=== PATIENT | male | born 1950 | race Caucasian/White ===

== ENCOUNTER 2020-02-08 23:46 | Inpatient (IN) | payer MEDICARE, SELFPAY ==
--- NOTE | 2020-02-08 23:48 | ED_ITS ---
HPI - Abdominal Pain General Chief Complaint: Abdominal Pain Stated Complaint: stomach pain Time Seen by Provider: 02/08/20 23:48 Source: patient Mode of arrival: Ambulatory Limitations: no limitations History of Present Illness HPI narrative: 69-year-old male nonsmoker, nondrinker with a history of prior cholecystectomy and hernia repair presents with 5 hours of persistent, severe upper abdominal pain with nausea and vomiting. He states is worse when he moves and improves with rest. He has little appetite states vomiting does not affect his symptoms. He is not dizzy nor weak or lightheaded. Denies chest pain or shortness of breath. He denies any change in bowel habits such as constipation or diarrhea. He is still passing gas. He denies any dysuria, frequency or urgency. He states his pain feels like it goes through to his back Related Data Allergies Allergy/AdvReac Type Severity Reaction Status Date / Time Penicillins Allergy Verified 02/09/20 00:36 Review of Systems Constitutional Constitutional: Denies chills, Denies fatigue, Denies fever(s), Denies frequent falls, Denies lethargy and Denies weakness Eyes Eyes: Denies change in vision, Denies eye discharge, Denies irritation and Denies loss of vision ENT Ears, Nose, Mouth, and Throat: Denies change in voice, Denies dizziness, Denies neck pain, Denies sore throat and Denies throat swelling Cardiovascular Cardiovascular: Denies chest pain, Denies irregular heart rhythm, Denies lightheadedness, Denies palpitations, Denies dyspnea, Denies dyspnea on exertion and Denies orthopnea Respiratory Respiratory: Denies cough, Denies dyspnea, Denies dyspnea on exertion and Denies wheezing Gastrointestinal Gastrointestinal: Reports abdominal pain, Denies change in bowel habits, Denies diarrhea, Reports nausea and Reports vomiting Musculoskeletal Musculoskeletal: Denies neck pain and Denies numbness Integumentary/Breasts Skin/Breast: Denies pruritus, Denies erythema, Denies rash and Denies wounds Neurologic Neurologic: Denies behavioral changes, Denies confusion, Denies dizziness, Denies frequent falls, Denies loss of vision, Denies numbness and Denies weakness Psychiatric Psychiatric: Denies anxiety, Denies behavioral changes, Denies confusion, Denies depression, Denies homicidal ideation and Denies suicidal ideation Endocrine Endocrine: Denies fatigue, Denies flushing and Denies palpitations Hematologic/Lymphatic Hematologic/Lymphatic: Denies easy bruising Allergic/Immunologic Allergic/Immunologic: Denies urticaria, Denies throat swelling and Denies wheezing Patient History Social History Smoking Status: Never smoker Smoking Status: Never smoker alcohol intake frequency: 0-2 drinks per day Substance Use Type: does not use Exam Narrative Exam Narrative: GENERAL: [69] year old patient appears stated age. Well- nourished, well-developed patient, obviously uncomfortable HEAD: Atraumatic. Normocephalic. EYES: Pupils equal round and reactive. Extraocular motions intact. No scleral icterus. No injection or drainage. ENT: Nose without bleeding, purulent drainage. Throat without erythema, tonsillar hypertrophy or exudate. Airway patent. NECK: Trachea midline. Non tender CARDIOVASCULAR: Regular rate and rhythm without murmurs, gallops, or rubs. RESPIRATORY: Clear to auscultation. Breath sounds equal bilaterally. No wheezes, rales, or rhonchi. GASTROINTESTINAL: Abdomen soft, significantly tender in the epigastrium and periumbilical region, nondistended. Normal bowel sounds in all 4 quadrants EXTREMITIES: No edema or joint tenderness. BACK: Nontender without deformity or crepitance. No flank tenderness. NEURO: AOx3. SKIN: No rash or erythema of visible areas Initial Vital Signs Initial Vital Signs: Vital Signs Pulse Rate 72 02/08/20 23:51 Pulse Oximetry 99 02/08/20 23:51 Course Orders Ordered: ED Orders 02/08/20 23:53 XR acute abdomen series Stat 02/08/20 23:59 Complete Blood Count AUTO DIFF Stat Comprehensive Metabolic Panel Stat Lactate (Lactic Acid) Stat Lipase Stat 02/09/20 EKG-12 Lead Stat 02/09/20 00:55 CT abdomen pelvis w con Stat COVID19 -ED/INPAT/OR/L&D Stat Ondansetron HCl (Zofran) 4 mg IV Q4HR PRN PRN Reason: Nausea And Vomiting Last Admin: 02/09/20 00:11 Dose: 4 mg Documented by: GUADALUPE Discontinued Medications Hydromorphone HCl (Dilaudid) 0.5 mg IV NOW ONE Stop: 02/08/20 23:54 Last Admin: 02/09/20 00:11 Dose: 0.5 mg Documented by: GUADALUPE Sodium Chloride (Normal Saline 0.9%) 1,000 mls @ 1,000 mls/hr IV BOLUS ONE Stop: 02/09/20 00:52 Last Infusion: 02/09/20 01:43 Dose: 0 mls/hr Documented by: Admin: 02/09/20 00:11 Dose: 1,000 mls/hr Documented by: GUADALUPE Pantoprazole Sodium (Protonix) 40 mg IV NOW ONE Stop: 02/08/20 23:54 Last Admin: 02/09/20 00:12 Dose: 40 mg Documented by: GUADALUPE Vital Signs Vital signs: Vital Signs - 8 hr 02/08/20 23:51 02/08/20 23:52 02/09/20 00:00 Temperature 98.0 F Pulse Rate 72 70 70 Respiratory Rate 22 Blood Pressure 206/93 H Pulse Oximetry 99 97 99 02/09/20 00:37 02/09/20 00:39 02/09/20 01:00 Temperature Pulse Rate 81 75 76 Respiratory Rate Blood Pressure 177/80 H 148/70 H Pulse Oximetry 99 98 98 02/09/20 01:30 Temperature Pulse Rate 75 Respiratory Rate Blood Pressure 167/74 H Pulse Oximetry 98 MDM - Abdominal Pain Lab Data Result diagrams: 02/08/20 23:59 02/08/20 23:59 Labs: Lab Results 02/08/20 02/08/20 02/08/20 Range/Units 23:59 23:59 23:59 WBC 13.9 H (4.5-11.0) X10^3/uL RBC 5.45 (4.5-5.9) X10^6/uL Hgb 16.8 (13.5-17.5) g/dL Hct 48.0 (41-53) % MCV 88.1 (80-100) fL MCH 30.9 (26-34) PG MCHC 35.1 (30-36) % RDW 13.3 (11.6-14.8) % Plt Count 222 (150-400) X10^3/uL Neut % (Auto) 91.4 H (50-75) % Lymph % (Auto) 6.0 L (25-40) % Hardy % (Auto) 2.2 L (3-14) % Eos % (Auto) 0.1 L (2-4) % Baso % (Auto) 0.3 (0-2) % Neut # (Auto) 65873 H (2738-1046) /uL Lymph # (Auto) 800 L (2442-6653) /uL [place] # (Auto) 300 (0-900) /uL Eos # (Auto) 0 (0-450) /uL Baso # (Auto) 0 (0-100) /uL Sodium 136 L (137-145) mmol/L Potassium 4.0 (3.4-5.1) mmol/L Chloride 102 (98-107) mmol/L Carbon Dioxide 22 (22-32) mmol/L BUN 18 (9-20) mg/dL Creatinine 0.94 (0.66-1.25) mg/dL Estimated GFR > 60.0 (>60) mL/min BUN/Creatinine Ratio 19.1 (6-22) Glucose 164 H (80-110) mg/dL Lactate 2.4 H (0.7-2.1) mmol/L Calcium 9.9 (8.4-10.2) mg/dL Total Bilirubin 1.5 H (0.2-1.3) mg/dL AST 30 (17-59) IU/L ALT 30 (<50) IU/L Alkaline Phosphatase 72 (38-126) U/L Total Protein 7.8 (6.3-8.2) g/dL Albumin 4.5 (3.5-5.0) g/dL Globulin 3.3 (1.7-4.1) g/dL Albumin/Globulin Ratio 1.4 (1.0-2.8) Lipase 19615 H (23-300) U/L COVID-19 PCR (Negative) 02/09/20 Range/Units 00:55 WBC (4.5-11.0) X10^3/uL RBC (4.5-5.9) X10^6/uL Hgb (13.5-17.5) g/dL Hct (41-53) % MCV (80-100) fL MCH (26-34) PG MCHC (30-36) % RDW (11.6-14.8) % Plt Count (150-400) X10^3/uL Neut % (Auto) (50-75) % Lymph % (Auto) (25-40) % [place] % (Auto) (3-14) % Eos % (Auto) (2-4) % Baso % (Auto) (0-2) % Neut # (Auto) (7148-5238) /uL Lymph # (Auto) (7600-6394) /uL Hardy # (Auto) (0-900) /uL Eos # (Auto) (0-450) /uL Baso # (Auto) (0-100) /uL Sodium (137-145) mmol/L Potassium (3.4-5.1) mmol/L Chloride (98-107) mmol/L Carbon Dioxide (22-32) mmol/L BUN (9-20) mg/dL Creatinine (0.66-1.25) mg/dL Estimated GFR (>60) mL/min BUN/Creatinine Ratio (6-22) Glucose (80-110) mg/dL Lactate (0.7-2.1) mmol/L Calcium (8.4-10.2) mg/dL Total Bilirubin (0.2-1.3) mg/dL AST (17-59) IU/L ALT (<50) IU/L Alkaline Phosphatase (38-126) U/L Total Protein (6.3-8.2) g/dL Albumin (3.5-5.0) g/dL Globulin (1.7-4.1) g/dL Albumin/Globulin Ratio (1.0-2.8) Lipase (23-300) U/L COVID-19 PCR Negative (Negative) Imaging Data CT scan - abdomen/pelvis: Radiologist's Impression: acute pancreatitis, no abscess ECG Data Attestation: I personally reviewed and interpreted this ECG as follows: Prior ECG tracings: not available for review Interpretation: Normal sinus rhythm with rate of 63. Slightly long as needed o nannette at 2:08 a.m.. No obvious ectopy, ST-elevation or T-wave abnormalities MDM Narrative Medical decision making narrative: Patient with severe epigastric pain. He has surgically absent gallbladder and does not drink, CT ordered and shows no abscess or necrosis. Patient does take Metformin which could be a precipitant. Patient requires admission for IV hydration and pain control Discharge Plan Departure Patient Disposition: Admitted As Inpatient Clinical Impression: Acute pancreatitis Admit Date/Time: 02/09/20 01:30 Admit Provider: Lindsey Peters
[2020-02-08 23:51] VITALS: PULSE 72; O2SAT 99
[2020-02-08 23:52] VITALS: BP 206/93; PULSE 70; RESP 22; TEMP 36.7; O2SAT 97
--- NOTE | 2020-02-08 23:53 | DI.RAD.S_ITS ---
PROCEDURE: XR ACUTE ABDOMEN SERIES INDICATIONS: Abdominal pain with nausea and vomiting TECHNIQUE: One view chest and two views of the abdomen were acquired. COMPARISON: [facility], CT, CT ABDOMEN PELVIS W CON, 02/09/2020, 1:02. FINDINGS: Surgical changes and devices: Cholecystectomy clips are seen. Chest: Lungs are clear. Heart size is normal. No pleural effusions. No pneumoperitoneum. Abdomen: Bowel gas pattern is normal. No suspicious calcifications. Visualized solid organ contours appear normal. Bones: No suspicious bony lesions. Age-appropriate bony degenerative changes are seen. Mild dextroconvex scoliotic curvature is seen. IMPRESSION: No acute abnormality is seen. Postoperative and degenerative changes are seen. Dictated by: Jerel West M.D. on 02/09/2020 at 8:19 Approved by: Jerel West M.D. on 02/09/2020 at 8:20
[2020-02-09] VITALS (14 sets, daily range): BP systolic 136–177; BP diastolic 70–103; PULSE 55–82; RESP 17–18; TEMP 36.3–37.6; O2SAT 96–99; BMI 29.6
[2020-02-09 00:10] LABS: Add Manual Diff / Slide Review NO; Basophils Absolute Auto 0 /uL (0-100); Basophils Percent Auto 0.3 % (0-2); Eosinophils Absolute Auto 0 /uL (0-450); Eosinophils Percent Auto 0.1 % (2-4); Hemoglobin 16.8 g/dL (13.5-17.5); Lymphocytes Absolute Auto 800 /uL (1100-4500); Mean Corpuscular HGB Conc 35.1 % (30-36); Mean Corpuscular Hemoglobin 30.9 PG (26-34); Mean Corpuscular Volume 88.1 fL (80-100); Monocytes Absolute Auto 300 /uL (0-900); Monocytes Percent Auto 2.2 % (3-14); Neutrophils Absolute Auto 12700 /uL (1500-7000); Neutrophils Percent Auto 91.4 % (50-75); Platelet Count 222 X10^3/uL (150-400); Red Blood Cell Count 5.45 X10^6/uL (4.5-5.9); Red Cell Distribution Width 13.3 % (11.6-14.8); White Blood Cell Count 13.9 X10^3/uL (4.5-11.0)
[2020-02-09] MEDS: HYDROMORPHONE 0.5 MG INJ IV ×3 (00:11→11:17)
[2020-02-09] MEDS: SODIUM CHLORIDE 0.9% 1,000 ML 1000 ML IV (00:11)
[2020-02-09] MEDS: ONDANSETRON 4 MG/2 ML INJ IV (00:11)
[2020-02-09] MEDS: PANTOPRAZOLE 40 MG VIAL IV (00:12)
[2020-02-09 00:24] LABS: Alanine Aminotransferase 30 IU/L (<50); Albumin 4.5 g/dL (3.5-5.0); Albumin Globulin Ratio 1.4 (1.0-2.8); Alkaline Phosphatase 72 U/L (38-126); Aspartate Aminotransferase 30 IU/L (17-59); BUN Creatinine Ratio 19.1 (6-22); Bilirubin Total 1.5 mg/dL (0.2-1.3); Blood Urea Nitrogen 18 mg/dL (9-20); Calcium 9.9 mg/dL (8.4-10.2); Carbon Dioxide 22 mmol/L (22-32); Chloride 102 mmol/L (98-107); Estimated Glomerular Filt Rate > 60.0 mL/min (>60); Globulin 3.3 g/dL (1.7-4.1); Glucose 164 mg/dL (80-110); Lactate (Lactic Acid) 2.4 mmol/L (0.7-2.1); Sodium 136 mmol/L (137-145); Total Protein 7.8 g/dL (6.3-8.2)
[2020-02-09 00:44] LABS: HEMOLYSIS 24 (0-50)
[2020-02-09 00:46] LABS: Lipase 17395 U/L (23-300)
--- NOTE | 2020-02-09 00:55 | DI.CT.S_ITS ---
PROCEDURE: CT ABDOMEN PELVIS W CON INDICATIONS: severe epigastric pain, pancreatitis TECHNIQUE: After the administration of intravenous contrast, 5 mm thick sections acquired from the diaphragm to the symphysis. 5 mm coronal and sagittal reformats were acquired. For radiation dose reduction, the following was used: automated exposure control, adjustment of mA and/or kV according to patient size. COMPARISON: [facility], CR, XR ACUTE ABDOMEN SERIES, 02/09/2020, 0:12. FINDINGS: Image quality: Excellent. ABDOMEN: Lung bases: Lung bases are clear. Heart size is normal. Solid organs: Liver is normal in size. Within the inferior right liver, there is a subcentimeter hypodense lesion seen, as on series 2, image 26, which is nonspecific and may represent a cyst or hemangioma. Calcified granulomas can be seen within the liver. Incidental note is made of focal fatty infiltration adjacent to the falciform ligament, which is not regarded to be pathologic. Gallbladder has been removed. Biliary system is non dilated. Inflammatory changes can be seen adjacent to the pancreas scar particularly adjacent to the head of the pancreas. Pancreas enhances normally, without necrotic areas. The pancreatic duct does not appear dilated. No loculated fluid collections are seen to suggest pancreatic pseudocyst Spleen is normal in size and enhancement. No adrenal nodules. Kidneys demonstrate normal size and enhancement, without hydronephrosis. There is an 8.5 cm simple appearing, water density cyst exophytic along the lateral aspect of the left kidney. Smaller presumed simple cysts are seen elsewhere within the kidneys. At the inferior pole of the left kidney, there is a nonobstructing 6 mm stone seen, as on series 4, image 37. Additional are smaller nonobstructing left-sided kidney stones are also seen. Peritoneum and bowel: Focal wall thickening can be seen involving the duodenum, particularly adjacent to the pancreas. Potential gastric wall thickening is seen, yet this may simply be secondary to nondistention. No dilated loops of small bowel are seen. No free air or significant free fluid can be seen. No significant colonic abnormality is seen. A normal appendix is incidentally noted. Nodes and vessels: No retroperitoneal or mesenteric adenopathy by size criteria. Aorta and inferior vena cava are normal in size. Miscellaneous: No ventral hernias. PELVIS: Genitourinary: Bladder wall thickness is normal. Miscellaneous: No inguinal adenopathy. Bilateral fat containing inguinal hernias are seen. Bones: No suspicious bony lesions. No vertebral body compression fractures. Mild dextroconvex scoliotic curvature is seen. Age-appropriate bony degenerative changes are seen. Bilateral L5 pars defects are seen, with mild grade 1 anterolisthesis at L5-S1. Degenerative changes are seen throughout, which are most prominent involving the lower lumbar spine. At least moderate degenerative changes seen of the right hip. IMPRESSION: Pancreatitis, without findings of pancreatic necrosis or pseudocyst formation. Associated wall thickening can be seen of the adjacent duodenum. Potential gastric wall thickening is also seen. Incidental note is made of: Cholecystectomy Subcentimeter likely liver cyst or hemangioma Prior granulomatous exposure. Prominent left renal cyst Nonobstructing left-sided kidney stones Bilateral fat containing inguinal hernias Mild dextroconvex scoliotic curvature L5 bilateral pars defects, with grade 1 anterolisthesis at L5-S1 Focal lower lumbar spine degenerative change At least moderate right hip degenerative change Note: No significant discrepancy from the preliminary report. Dictated by: Jerel West M.D. on 02/09/2020 at 7:35 Approved by: Jerel West M.D. on 02/09/2020 at 7:43
[2020-02-09 01:26] LABS: COVID19 -Nasal RAPID Negative (Negative)
[2020-02-09 02:06] LABS: Reflexed Lactate in 2 Hours Y
[2020-02-09 02:35] LABS: Lactate 2HR (Lactic Acid Rflx) 1.9 mmol/L (0.7-2.1)
[2020-02-09] MEDS: SODIUM CHLORIDE 0.9% 1,000 ML 100 ML IV ×2 (03:36→14:33)
[2020-02-09 03:39] LABS: Hemoglobin A1C% w Est Avg Glu 5.7 % (4.0-6.0)
[2020-02-09] MEDS: KETOROLAC 15 MG/ML VIAL IV ×2 (03:40→10:32)
--- NOTE | 2020-02-09 04:50 | PM.HP.1 ---
History of Present Illness History of Present Illness Date Patient Seen: 02/09/20 Time Patient Seen: 02:00 Chief complaint: stomach pain Narrative: Michael Acuña is an [facility] resident visiting his girlfriend who lives locally with a history of cholecystecomy, diet controlled diabetes and an enlarged prostate, was in his usual state of health when he developed central abdominal pain and nausea at around 6 pm. It worsened and he took some Pepto bismal around 2129, stated it helped for about 10 minutes, then decided to walk to the hospital to get checked out. He denies fever, sweats or chills, an alcohol consumption history, shortness of breath, chest pain, vomiting, does have chronic urinary retention, denies diarrhea, constipation, or upper extremity neuropathy or ataxia, but endorses haveing mild foot numbness which he states has been improving. Patient has been on a Keto diet and states it has helped him loose weight (50 lbs) and get his blood glucose under better control. States his last A1c was 5.7, and this was verified today. He takes a number of organic enzymes and bile which he states helps for his lack of a gall bladder. Patient had a CT done that indicated mild acute on chronic pancreatitis with a question of gastroenteritis. Patient is afebrile, blood pressure 152/103, heart rate 82 respiratory rate 18, oxygen saturation 97% on room air, he weighs 99 kg with a BMI of 29.6. WBC is mildly elevated at 13.9, RBC 5.45, hemoglobin 16.8, hematocrit 48, platelet count 222, is a neutrophil count of 12,700, sodium 136, potassium 4.0, chloride 102, bicarb 22, BUN 18, creatinine 0.94, GFR is greater than 60, glucose was 164, hemoglobin A1c 5.7, lactate is 1.9, bilirubin is 1.5, AST 30, ALT 30, alk-phos 72, lipase is 17,395, COVID-19 is negative. Patient History Surgical History (Updated 02/09/20 @ 05:03 by LAURE Hoffman) History of cholecystectomy (Acute) Family & Social History Social History: household members none Prior Living Arrangements Mobile home Safety & Behavioral: Feels Safe in Current Yes Environment Been Physically Hurt or No Threatened By a Person Suicidal Ideation Description None Suicide Plan Description No Plan Tobacco & Substance use: Smoking Status Never smoker alcohol intake current alcohol intake frequency denies Substance Use Type does not use Meds Home Medications and Allergies Home Medications Medication Instructions Recorded Confirmed Type metformin [Glucophage] 500 mg PO BID 02/09/20 02/09/20 History tamsulosin [Flomax] 0.8 mg PO BEDTIME 02/09/20 02/09/20 History Allergies Allergy/AdvReac Type Severity Reaction Status Date / Time Penicillins Allergy Verified 02/09/20 00:36 Review of Systems Review of Systems ROS: Yes All systems reviewed with the patient and are negative except as otherwise documented Exam Vital Signs (past 8 hours): - 02/08/20 23:51 02/08/20 23:52 02/09/20 00:00 Temperature 98.0 F Pulse Rate 72 70 70 Respiratory Rate 22 Blood Pressure 206/93 H Pulse Oximetry 99 97 99 02/09/20 00:37 02/09/20 00:39 02/09/20 01:00 Temperature Pulse Rate 81 75 76 Respiratory Rate Blood Pressure 177/80 H 148/70 H Pulse Oximetry 99 98 98 02/09/20 01:30 02/09/20 02:00 02/09/20 02:25 Temperature 97.4 F L Pulse Rate 75 81 82 Respiratory Rate 18 Blood Pressure 167/74 H 174/94 H 152/103 H Pulse Oximetry 98 98 97 Oxygen Delivery Method Room Air Oxygen Flow Rate 0 Narrative Exam Narrative: Gen: Alert, oriented, overweight 69 y.o. male, NAD HEENT: normocephalic, atraumatic, conjunctiva clear, sclera non-icteric, oral mucosa pink and moist Neck: supple, full ROM, no JVD, trachea is midline Resp: Lungs CTA, non-labored breathing CV: RRR, no murmur or rubs Abd: soft, diffuse mid abdominal tenderness, normoactive BTs Skin: no lesions or rashes, dry and intact Neuro: Alert and oriented X 4 w/no focal deficits. Speech clear and coherent. Extremities: moves all 4 extremities, is ambulatory, negative Breann?s sign Psyche: very pleasant, normal mood and affect. Objective Labs Result Diagrams: 02/08/20 23:59 02/08/20 23:59 Labs: Laboratory Results - last 24 hr 02/08/20 02/08/20 02/08/20 23:59 23:59 23:59 WBC 13.9 H RBC 5.45 Hgb 16.8 Hct 48.0 MCV 88.1 MCH 30.9 MCHC 35.1 RDW 13.3 Plt Count 222 Neut % (Auto) 91.4 H Lymph % (Auto) 6.0 L [place] % (Auto) 2.2 L Eos % (Auto) 0.1 L Baso % (Auto) 0.3 Neut # (Auto) 44164 H Lymph # (Auto) 800 L [place] # (Auto) 300 Eos # (Auto) 0 Baso # (Auto) 0 Sodium 136 L Potassium 4.0 Chloride 102 Carbon Dioxide 22 BUN 18 Creatinine 0.94 Estimated GFR > 60.0 BUN/Creatinine Ratio 19.1 Glucose 164 H Hemoglobin A1c Lactate 2.4 H Calcium 9.9 Total Bilirubin 1.5 H AST 30 ALT 30 Alkaline Phosphatase 72 Total Protein 7.8 Albumin 4.5 Globulin 3.3 Albumin/Globulin Ratio 1.4 Lipase 16427 H COVID-19 PCR 02/08/20 02/09/20 02/09/20 23:59 00:55 02:12 WBC RBC Hgb Hct MCV MCH MCHC RDW Plt Count Neut % (Auto) Lymph % (Auto) [place] % (Auto) Eos % (Auto) Baso % (Auto) Neut # (Auto) Lymph # (Auto) [place] # (Auto) Eos # (Auto) Baso # (Auto) Sodium Potassium Chloride Carbon Dioxide BUN Creatinine Estimated GFR BUN/Creatinine Ratio Glucose Hemoglobin A1c 5.7 Lactate 1.9 Calcium Total Bilirubin AST ALT Alkaline Phosphatase Total Protein Albumin Globulin Albumin/Globulin Ratio Lipase COVID-19 PCR Negative Assessment & Plan Assessment & Plan narrative: Michael Acuña will be observed overnight for pain control and fluids for an acute on chronic pancreatitis Acute on chronic pancreatitis with a lipase of 17,395 -NS at 100 ml/hour -lipid panel in the am -pain control with low dose IV hydromorphone, toradal and tylenol -if he is able to tolerate a full liquid diet, he should be ready for discharge -continue to monitor for signs and symptoms of active infection Diet controlled diabetes -A1c of 5.7 -glucose checks achs with low dose correctional insulin Hypertension without a diagnosis of hypertension -Start lisinopril 10 mg po daily VTE prophylaxis: Caprini risk score: 4, moderate. Enoxaparin 40 mg subQ daily Consults: none Patient is observation status as his stay is not likely to exceed 2 midnights. FEN: IV NS at 100 ml/hour, clears, BMP and magnesium in the am. Dispo: probable discharge to home Code Status: as discussed with patient COVID-19 COVID-19 status: Negative Result date/Date tested (Pos, Neg/Pending): 02/09/20 Quality VTE Deep Vein Thrombosis/Pulmonary Embolism Present on Admission: No
[2020-02-09 06:14] LABS: Add Manual Diff / Slide Review NO; Basophils Absolute Auto 100 /uL (0-100); Basophils Percent Auto 0.5 % (0-2); Eosinophils Absolute Auto 0 /uL (0-450); Eosinophils Percent Auto 0.1 % (2-4); Hematocrit 44.2 % (41-53); Hemoglobin 15.2 g/dL (13.5-17.5); Lymphocytes Absolute Auto 1400 /uL (1100-4500); Lymphocytes Percent Auto 11.2 % (25-40); Mean Corpuscular HGB Conc 34.4 % (30-36); Mean Corpuscular Hemoglobin 30.5 PG (26-34); Mean Corpuscular Volume 88.6 fL (80-100); Monocytes Absolute Auto 700 /uL (0-900); Monocytes Percent Auto 5.6 % (3-14); Neutrophils Absolute Auto 10500 /uL (1500-7000); Neutrophils Percent Auto 82.6 % (50-75); Platelet Count 212 X10^3/uL (150-400); Red Blood Cell Count 4.99 X10^6/uL (4.5-5.9); Red Cell Distribution Width 13.3 % (11.6-14.8); White Blood Cell Count 12.6 X10^3/uL (4.5-11.0)
[2020-02-09 06:16] LABS: Blood Urea Nitrogen 17 mg/dL (9-20); Calcium 9.2 mg/dL (8.4-10.2); Carbon Dioxide 28 mmol/L (22-32); Chloride 103 mmol/L (98-107); Cholesterol 143 mg/dL (140-199); Estimated Glomerular Filt Rate > 60.0 mL/min (>60); Glucose 125 mg/dL (80-110); HDL Cholesterol 36 mg/dL (40-60); HEMOLYSIS < 15 (0-50); LDL Cholesterol Calculated 94 mg/dL (<100); Magnesium 1.9 mg/dL (1.6-2.3); Potassium 4.6 mmol/L (3.4-5.1); Sodium 136 mmol/L (137-145); Triglycerides 64 mg/dL (35-150)
[2020-02-09] MEDS: lisinopriL 10 MG TABLET PO (08:23)
[2020-02-09] MEDS: ENOXAPARIN 40 MG/0.4 ML SYRINGE SUBCUT (08:23)
--- NOTE | 2020-02-09 08:35 | PC.NURSE ---
Patient alert,oriented rates mid abdominal pain /, reports the pain has increased slightly after having clear liquids for breakfast. Denies nausea.
[2020-02-09 10:32] LABS: Lipase 8865 U/L (23-300)
--- NOTE | 2020-02-09 10:50 | CM.DANOTE ---
DCP:Case received, EMR reviewed and met with patient, Introduced self and role. Was able to obtain information from patient regarding his baseline activity level prior to surgery, as well as health and living situation. DCP assessment completed with information currently available. Patient is 69 year old male who admitted early this morning to the care of the hospitalist team. PCP: Dr. Moya at [facility]. Payer: confirmed: [employer] Medicare. Patient came to the hospital via private vehicle secondary to abdominal pain. He holds current diagnosis of acute pancreatitis. Patient also has history of diabetes. Met with patient in his room. He is alert and oriented, pleasant. He resides in [place], he used to work at [employer]. He came to [place] to see his significant other, Coleen Main. He is independent. He stated, he no longer drinks, uses Marijuana for recreational use. He is independent at baseline. P: DCP to continue to follow. According to team rounds, may be here for one to two more days. Plan is for home when medically stable. Piper Herman RN/[facility] [place]
--- NOTE | 2020-02-09 17:32 | P.PN_ITS ---
Subjective Subjective Date Patient Seen: 02/09/20 Interval history: Brief progress note: Patient seen and examined. Lipase highly elevated at 17,395 and rechecked this morning and trending downward now 8865. WBC elevated at 13.9 and trending down likely due to inflammation. CT abdomen and pelvis with contrast demonstrated pancreatitis with associated duodenal wall thickening and without evidence of pancreatic necrosis or pseudocyst. No evidence of biliary ductal dilatation and patient is status post cholecystectomy so his residual gallstone causing pancreatitis is unlikely. Triglycerides are normal at 64. Patient does consume keto diet but states it is not high in fat and r ecently cut out dairy. Pancreatitis does not seem to be medication related metformin or tamsulosin, however, the patient reports he does take several [id number] supplements and unknown if could have contributed. Discussed pancreatitis and most common causes and is unclear at this time etiology of this. Patient had abdominal pain after clear liquid diet this morning and retracted to bowel rest with NPO except ice chips and sips. Physical exam unremarkable other than mild epigastric abdominal tenderness to palpation. Continue IV fluid hydration with NS at 100 mL/hr and pain control with IV hydromorphone. Continue to monitor blood glucose every 6 hours while NPO. Exam Vital Signs (past 8 hours): - 02/09/20 11:21 02/09/20 15:10 02/09/20 17:26 Temperature 98.4 F 99.6 F Pulse Rate 67 61 Respiratory Rate 18 18 Blood Pressure 136/73 141/74 H Pulse Oximetry 98 98 96 Oxygen Delivery Method Room Air Oxygen Flow Rate 0 Objective Labs Result Diagrams: 02/09/20 05:38 02/09/20 05:38 Labs: Laboratory Results - last 24 hr 02/08/20 02/08/20 02/08/20 23:59 23:59 23:59 WBC 13.9 H RBC 5.45 Hgb 16.8 Hct 48.0 MCV 88.1 MCH 30.9 MCHC 35.1 RDW 13.3 Plt Count 222 Neut % (Auto) 91.4 H Lymph % (Auto) 6.0 L [place] % (Auto) 2.2 L Eos % (Auto) 0.1 L Baso % (Auto) 0.3 Neut # (Auto) 40471 H Lymph # (Auto) 800 L [place] # (Auto) 300 Eos # (Auto) 0 Baso # (Auto) 0 Sodium 136 L Potassium 4.0 Chloride 102 Carbon Dioxide 22 BUN 18 Creatinine 0.94 Estimated GFR > 60.0 BUN/Creatinine Ratio 19.1 Glucose 164 H Hemoglobin A1c Lactate 2.4 H Calcium 9.9 Magnesium Total Bilirubin 1.5 H AST 30 ALT 30 Alkaline Phosphatase 72 Total Protein 7.8 Albumin 4.5 Globulin 3.3 Albumin/Globulin Ratio 1.4 Triglycerides Cholesterol LDL Cholesterol, Calc HDL Cholesterol Lipase 21603 H COVID-19 PCR 02/08/20 02/09/20 02/09/20 23:59 00:55 02:12 WBC RBC Hgb Hct MCV MCH MCHC RDW Plt Count Neut % (Auto) Lymph % (Auto) [place] % (Auto) Eos % (Auto) Baso % (Auto) Neut # (Auto) Lymph # (Auto) [place] # (Auto) Eos # (Auto) Baso # (Auto) Sodium Potassium Chloride Carbon Dioxide BUN Creatinine Estimated GFR BUN/Creatinine Ratio Glucose Hemoglobin A1c 5.7 Lactate 1.9 Calcium Magnesium Total Bilirubin AST ALT Alkaline Phosphatase Total Protein Albumin Globulin Albumin/Globulin Ratio Triglycerides Cholesterol LDL Cholesterol, Calc HDL Cholesterol Lipase COVID-19 PCR Negative 02/09/20 02/09/20 02/09/20 05:38 05:38 05:38 WBC 12.6 H RBC 4.99 Hgb 15.2 Hct 44.2 MCV 88.6 MCH 30.5 MCHC 34.4 RDW 13.3 Plt Count 212 Neut % (Auto) 82.6 H Lymph % (Auto) 11.2 L [place] % (Auto) 5.6 Eos % (Auto) 0.1 L Baso % (Auto) 0.5 Neut # (Auto) 56395 H Lymph # (Auto) 1400 [place] # (Auto) 700 Eos # (Auto) 0 Baso # (Auto) 100 Sodium 136 L Potassium 4.6 Chloride 103 Carbon Dioxide 28 BUN 17 Creatinine 1.06 Estimated GFR > 60.0 BUN/Creatinine Ratio 16.0 Glucose 125 H Hemoglobin A1c Lactate Calcium 9.2 Magnesium 1.9 Total Bilirubin AST ALT Alkaline Phosphatase Total Protein Albumin Globulin Albumin/Globulin Ratio Triglycerides 64 Cholesterol 143 LDL Cholesterol, Calc 94 HDL Cholesterol 36 L Lipase 8865 H COVID-19 PCR Quality VTE Deep Vein Thrombosis/Pulmonary Embolism Present on Admission: No
[2020-02-10] VITALS (8 sets, daily range): BP systolic 123–160; BP diastolic 61–92; PULSE 52–73; RESP 15–20; TEMP 36.1–36.7; O2SAT 97–99
[2020-02-10] MEDS: SODIUM CHLORIDE 0.9% 1,000 ML 100 ML IV ×3 (00:32→22:06)
[2020-02-10] MEDS: ACETAMINOPHEN 325 MG TABLET 650 MG PO (00:45)
[2020-02-10] MEDS: HYDROMORPHONE 0.5 MG INJ IV (00:51)
[2020-02-10 05:34] LABS: Add Manual Diff / Slide Review NO; Basophils Absolute Auto 100 /uL (0-100); Basophils Percent Auto 0.6 % (0-2); Eosinophils Absolute Auto 200 /uL (0-450); Eosinophils Percent Auto 1.2 % (2-4); Hematocrit 41.6 % (41-53); Hemoglobin 14.5 g/dL (13.5-17.5); Lymphocytes Absolute Auto 1900 /uL (1100-4500); Lymphocytes Percent Auto 14.4 % (25-40); Mean Corpuscular HGB Conc 34.8 % (30-36); Mean Corpuscular Volume 88.9 fL (80-100); Monocytes Absolute Auto 1300 /uL (0-900); Monocytes Percent Auto 10.3 % (3-14); Neutrophils Absolute Auto 9600 /uL (1500-7000); Neutrophils Percent Auto 73.5 % (50-75); Platelet Count 177 X10^3/uL (150-400); Red Blood Cell Count 4.68 X10^6/uL (4.5-5.9); Red Cell Distribution Width 13.2 % (11.6-14.8)
[2020-02-10 05:45] LABS: Alanine Aminotransferase 18 IU/L (<50); Albumin 3.5 g/dL (3.5-5.0); Albumin Globulin Ratio 1.3 (1.0-2.8); Alkaline Phosphatase 51 U/L (38-126); Aspartate Aminotransferase 18 IU/L (17-59); BUN Creatinine Ratio 12.2 (6-22); Bilirubin Total 1.4 mg/dL (0.2-1.3); Blood Urea Nitrogen 11 mg/dL (9-20); Calcium 8.8 mg/dL (8.4-10.2); Carbon Dioxide 26 mmol/L (22-32); Chloride 106 mmol/L (98-107); Estimated Glomerular Filt Rate > 60.0 mL/min (>60); Globulin 2.8 g/dL (1.7-4.1); Glucose 123 mg/dL (80-110); HEMOLYSIS < 15 (0-50); Lipase 1480 U/L (23-300); Magnesium 1.8 mg/dL (1.6-2.3); Potassium 3.8 mmol/L (3.4-5.1); Sodium 137 mmol/L (137-145); Total Protein 6.3 g/dL (6.3-8.2)
--- NOTE | 2020-02-10 05:57 | PC.NURSE ---
Summary- Patient reported pain /10 at 00:00 and requested pain medication for relief. IV hydromorphone 0.5 mg was given. Patient sleeping comfortably rest of shift.
[2020-02-10 06:04] LABS: Procalcitonin < 0.05 ng/mL (<0.5)
[2020-02-10] MEDS: ENOXAPARIN 40 MG/0.4 ML SYRINGE SUBCUT (10:32)
--- NOTE | 2020-02-10 11:08 | PC.NURSE ---
PATIENT TOLERATED CLEAR LIQUID DIET WITHOUT INCREASED ABD PAIN. STATES PAIN IS 1-2/10. TOOK SHOWER THIS AM. NO S/SX'S OF DISTRESS.
--- NOTE | 2020-02-10 14:06 | P.PN_ITS ---
Subjective Subjective Date Patient Seen: 02/10/20 Time Patient Seen: 14:07 Interval history: Michael Acuña is a 69-year-old male with type 2 diabetes, BPH who was admitted with pancreatitis. He is seen for follow-up today. He has been tolerating clear liquids throughout today without nausea or vomiting. His lipase was repeated and is down quite a bit to 1480 today. He denies any fevers, chills. His abdominal pain is currently rated about a 2 or 3/10 and is tolerable. It is not seemingly worsened with clear liquid intake at the moment. Exam Vital Signs (past 8 hours): - 02/10/20 08:32 02/10/20 08:52 02/10/20 12:36 Temperature 97.6 F 98.1 F Pulse Rate 56 L 68 Respiratory Rate 16 15 Blood Pressure 160/92 H 141/82 H Pulse Oximetry 98 98 98 Oxygen Delivery Method Room Air Oxygen Flow Rate 0 Narrative Exam Narrative: GENERAL APPEARANCE: Well developed, well nourished, in no acute distress. SKIN: Inspection of the skin reveals no rashes, ulcerations or petechiae. HEENT: Normocephalic atraumatic, extraocular muscles are intact, oropharynx is clear and mucous membranes are moist, neck is supple without adenopathy NECK: Supple and symmetric. There was no thyroid enlargement, and no tenderness, or masses were felt. CHEST: Normal AP diameter and normal contour without any kyphoscoliosis. LUNGS: Auscultation of the lungs revealed no wheezes, rhonchi, or rales. CARDIOVASCULAR: There was a regular rate and rhythm without any murmurs, gallops, rubs. Peripheral pulses were 2+ and symmetric. ABDOMEN: Soft and nontender with normal bowel sounds. No ascites was noted. MUSCULOSKELETAL: There was no tenderness or effusions noted. Muscle strength and tone were normal. EXTREMITIES: No cyanosis, clubbing or edema. NEUROLOGIC: Alert and oriented x 3. Normal affect. Gait was normal. Strength is +5/5 in the Upper Extremities and Lower Extremities Bilaterally. Sensation to touch was normal. Objective Labs Result Diagrams: 02/10/20 05:15 02/10/20 05:15 Labs: Laboratory Results - last 24 hr 02/10/20 02/10/20 02/10/20 05:15 05:15 05:15 WBC 13.0 H RBC 4.68 Hgb 14.5 Hct 41.6 MCV 88.9 MCH 31.0 MCHC 34.8 RDW 13.2 Plt Count 177 Neut % (Auto) 73.5 Lymph % (Auto) 14.4 L [place] % (Auto) 10.3 Eos % (Auto) 1.2 L Baso % (Auto) 0.6 Neut # (Auto) 9600 H Lymph # (Auto) 1900 [place] # (Auto) 1300 H Eos # (Auto) 200 Baso # (Auto) 100 Sodium 137 Potassium 3.8 Chloride 106 Carbon Dioxide 26 BUN 11 Creatinine 0.90 Estimated GFR > 60.0 BUN/Creatinine Ratio 12.2 Glucose 123 H Calcium 8.8 Magnesium 1.8 Total Bilirubin 1.4 H AST 18 ALT 18 Alkaline Phosphatase 51 Total Protein 6.3 Albumin 3.5 Globulin 2.8 Albumin/Globulin Ratio 1.3 Lipase 1480 H D Procalcitonin < 0.05 Assessment & Plan Assessment & Plan narrative: Michael Acuña is a 61-year-old male with a past medical history of type 2 diabetes and BPH who was admitted with pancreatitis. 1. Acute pancreatitis, present on admission -continue to advance diet as tolerated, will start low-fat diet this evening as he has been tolerating clears today. Lipase of almost 18,000 has improved to 1480 today. His symptoms are also improving. -if patient is tolerating a diet he can be discharged as early as tomorrow depending on his symptoms. -continue pain control -will continue IV fluids today. -cause is idiopathic at this point. His triglycerides were unremarkable, he has a history of cholecystectomy, and he denies drinking. May be related to 1 of the many supplements that he takes. Consider further evaluation if his symptoms recur, but at this time no further workup is required. 2. Diet controlled diabetes -A1c of 5.7 -glucose checks achs with low dose correctional insulin, will hold metformin 3. Elevated blood pressure Without a diagnosis of hypertension -likely in the setting of pain, will not initiate antihypertensive therapy at this point. He should follow-up with the primary care provider for further blood pressure checks when his pain is improved. 4. BPH, chronic -continue home tamsulosin Code: Full as discussed with the patient Dispo: Changed inpatient yesterday, remains admitted as he just started tolerating clears today. Will advance diet as tolerated. Could discharge home as early as tomorrow depending on his symptoms and ability to tolerate a diet. DVT: Lovenox daily COVID-19 COVID-19 status: Negative Quality VTE Deep Vein Thrombosis/Pulmonary Embolism Present on Admission: No
--- NOTE | 2020-02-10 22:42 | PC.NURSE ---
PATIENT DENIES ANY PAIN,DENIES NAUSEA WITH LOW FAT DINNER . STATES FEEL GREAT, FEELS NORMAL AGAIN
[2020-02-11 03:35] VITALS: BP 134/68; PULSE 49; RESP 15; TEMP 37.3; O2SAT 97
[2020-02-11] MEDS: SODIUM CHLORIDE 0.9% 1,000 ML 100 ML IV (06:39)
[2020-02-11 07:00] VITALS: BP 147/79; PULSE 51; RESP 15; TEMP 36.2; O2SAT 99
--- NOTE | 2020-02-11 08:30 | P.DS_ITS ---
History of Present Illness History of Present Illness Date Patient Seen: 02/11/20 Time Patient Seen: 08:30 Chief complaint: stomach pain Narrative: As per LAURE Hoffman: Michael Acuña is an [facility] resident visiting his girlfriend who lives locally with a history of cholecystecomy, diet controlled diabetes and an enlarged prostate, was in his usual state of health when he developed central abdominal pain and nausea at around 6 pm. It worsened and he took some Pepto bismal around 2129, stated it helped for about 10 minutes, then decided to walk to the hospital to get checked out. He denies fever, sweats or chills, an alcohol consumption history, shortness of breath, chest pain, vomiting, does have chronic urinary retention, denies diarrhea, constipation, or upper extremity neuropathy or ataxia, but endorses haveing mild foot numbness which he states has been improving. Patient has been on a Keto diet and states it has helped him loose weight (50 lbs) and get his blood glucose under better control. States his last A1c was 5.7, and this was verified today. He takes a number of organic enzymes and bile which he states helps for his lack of a gall bladder. Patient had a CT done that indicated mild acute on chronic pancreatitis with a question of gastroenteritis. Patient is afebrile, blood pressure 152/103, heart rate 82 respiratory rate 18, oxygen saturation 97% on room air, he weighs 99 kg with a BMI of 29.6. WBC is mildly elevated at 13.9, RBC 5.45, hemoglobin 16.8, hematocrit 48, platelet count 222, is a neutrophil count of 12,700, sodium 136, potassium 4.0, chloride 102, bicarb 22, BUN 18, creatinine 0.94, GFR is greater than 60, glucose was 164, hemoglobin A1c 5.7, lactate is 1.9, bilirubin is 1.5, AST 30, ALT 30, alk-phos 72, lipase is 17,395, COVID-19 is negative. Discharge Providers Provider Date of admission: 02/09/20 01:30 Discharge Date: 02/11/20 Discharge provider: Brennon Gentile DO Summary Hospital Course Discharge Diagnosis: Please see hospital course by problem list noted below Hospital Course: Michael Acuña is a 61-year-old male with a past medical history of type 2 diabetes and BPH who was admitted with pancreatitis. Ultimately, no source was found as his triglycerides were unremarkable, he had no evidence of biliary dysfunction and he had a history of cholecystectomy, and he does not drink, but it may be due to supplements which the patient has been taking. Patient initially did not tolerate clears, but 24 hours later he had improving abdominal pain. His diet was rapidly advanced and on the morning of discharge he had tolerated two low-fat meals without significant nausea or abdominal pain. He was discharged home and recommended to follow-up with his primary care provider. 1. Acute pancreatitis, present on admission -cause is idiopathic at this point. His triglycerides were unremarkable, he has a history of cholecystectomy, and he denies drinking. May be related to 1 of the many supplements that he takes. Consider further evaluation if his symptoms recur, but at this time no further workup is required. 2. Diet controlled diabetes -A1c of 5.7 -glucose checks achs with low dose correctional insulin was given while admitted. Held metformin which he can resume upon discharge. 3. Elevated blood pressure Without a diagnosis of hypertension -likely in the setting of pain, will not initiate antihypertensive therapy at this point. He should follow-up with the primary care provider for further blood pressure checks. 4. BPH, chronic -continue home tamsulosin Dispo: discharged home COVID19 testing was negative. Exam Vital Signs (past 8 hours): - 02/11/20 03:35 Temperature 99.2 F Pulse Rate 49 L Respiratory Rate 15 Blood Pressure 134/68 Pulse Oximetry 97 Oxygen Delivery Method Room Air Oxygen Flow Rate 0 Narrative Exam Narrative: GENERAL APPEARANCE: Well developed, well nourished, in no acute distress. SKIN: Inspection of the skin reveals no rashes, ulcerations or petechiae. HEENT: Normocephalic atraumatic, extraocular muscles are intact, oropharynx is clear and mucous membranes are moist, neck is supple without adenopathy NECK: Supple and symmetric. There was no thyroid enlargement, and no tenderness, or masses were felt. CHEST: Normal AP diameter and normal contour without any kyphoscoliosis. LUNGS: Auscultation of the lungs revealed no wheezes, rhonchi, or rales. CARDIOVASCULAR: There was a regular rate and rhythm without any murmurs, gallops, rubs. Peripheral pulses were 2+ and symmetric. ABDOMEN: Soft and nontender with normal bowel sounds. No ascites was noted. MUSCULOSKELETAL: There was no tenderness or effusions noted. Muscle strength and tone were normal. EXTREMITIES: No cyanosis, clubbing or edema. NEUROLOGIC: Alert and oriented x 3. Normal affect. Gait was normal. Strength is +5/5 in the Upper Extremities and Lower Extremities Bilaterally. Sensation to touch was normal. Objective Labs Result Diagrams: 02/10/20 05:15 02/10/20 05:15 Discharge Plan Discharge Plan Patient Disposition: Home Discharge comment: You were admitted to the hospital with inflammation in your pancreas. No immediate cause could be found, but may be related to some of the supplements your taking. Please check the list of ingredients on the supplements to see if any could be causing pancreatitis. Please follow-up with your primary care provider as previously scheduled. No changes are necessary to your current medications. Discharge orders & Medications Prescriptions: Continued metformin [Glucophage] 500 mg tablet 500 mg PO BID RF: 0 tamsulosin [Flomax] 0.4 mg capsule 0.8 mg PO BEDTIME RF: 0 Diet/Activity/Treatments Diet: Diet as Tolerated and Low-fat Activity: As tolerated Visit Report/Discharge Packet Instructions: Fat-Restricted Diet, DI for Pancreatitis Visit Report Forms: Patient Portal/API, Stroke Signs & Symptoms Discharges patient from system. Discharge Date/Time: 02/11/20 09:09 Quality VTE Deep Vein Thrombosis/Pulmonary Embolism Present on Admission: No
--- NOTE | 2020-02-11 09:08 | PC.NURSE ---
Pt is dressed and ready for discharge home. No changes to his med list. Recommended a low fat diet. Encouraged fluid intake to prevent constipation or dehydration. Reviewed stroke education. Pt to follow up with PCP as scheduled. Pt out via w/c by RN to ER doors with all belongings.
--- NOTE | 2020-02-11 11:14 | CM.DPC ---
DCP Discharge Home Per MD, pt is medically stable to d/c home today with no identified barriers to discharge. Per RN, reviewed d/c recommendations of low fat diet and fluid intake and no concerns with d/c and helped transport pt to POV for home today. Plan: Patient discharge home today via girlfriend POV and no SW needs at this time. SIDDHARTHA Castellanos
== END 2020-02-11 09:09 | disposition home or self-care (01) | DRG 440 ==
LOC: ED 02-09 01:27 → AC 02-09 01:30
PROVIDERS: Internal Medicine; Admitting Provider Nurse Practitioner Family; Emergency Provider Emergency Medicine; Referring Provider Emergency Medicine; Visit Provider Nurse Practitioner Family
DX: K85.90 Acute pancreatitis without necrosis or infection, unspecified (principal); E11.9 Type 2 diabetes mellitus without complications; N40.1 Benign prostatic hyperplasia with lower urinary tract symptoms; R33.9 Retention of urine, unspecified; R03.0 Elevated blood-pressure reading, without diagnosis of hypertension; Z11.59 Encounter for screening for other viral diseases; Z79.84 Long term (current) use of oral hypoglycemic drugs
CPT/HCPCS: 36415; 74022; 74177; 80048; 80053; 80061; 82962; 83036; 83605; 83690; 83735; 84145; 85025; 87635; 93005; 96361; 96374; 96375; 99284; C9113; J1170; J1650; J1885; J2405; Q9967

== ENCOUNTER 2020-03-18 15:57 | Emergency (ER) | payer MEDICARE, SELFPAY ==
[2020-02-09 01:31] VITALS: BMI 29.6
[2020-03-18 16:00] VITALS: BP 178/90; PULSE 91; RESP 18; O2SAT 100; BMI 29.1
--- NOTE | 2020-03-18 16:22 | ED_ITS ---
HPI - Abdominal Pain <LAURE Riggs - Last Filed: 03/18/20 20:13> General Chief Complaint: Abdominal Pain Stated Complaint: severe abdominal pains Time Seen by Provider: 03/18/20 16:03 Source: patient Mode of arrival: Ambulatory Limitations: no limitations History of Present Illness HPI narrative: 69yo male, history of diabetes type 2, presents to the ED for abdominal pain/back pain that started today. He was admitted for new onset pancreatitis approximately a month ago on 02/08/2020 and discharged 3 days later. He states during that visit he was diagnosed with a kidney stone on his left side. He states today he developed left-sided flank pain that radiated to his left groin which he attributed to a passing kidney stone as this pain was similar to past stones, he states he drink a lot of water and started to have upper abdominal pain that was similar to pancreatitis. At that point he vomited several times. Patient states after he vomited he felt better but was concerned he may have pancreatitis again so he presented to the emergency department. He states last night he tried two pieces of pizza for the 1st time, otherwise he has been eating a low-fat diet. Patient states he has intermittent nausea at this time, pain is about a 3/10 which has significantly improved. Patient denies any blood in urine, pain with urination, dizziness, chest pain, shortness of breath, or cough. Related Data Home Medications Medication Instructions Recorded Confirmed metformin [Glucophage] 500 mg PO BID 02/09/20 02/09/20 tamsulosin [Flomax] 0.8 mg PO BEDTIME 02/09/20 02/09/20 Previous Rx's Medication Instructions Recorded hydrocodone-acetaminophen [Novice] 1 tab PO Q4-6H PRN #14 tab 03/18/20 ondansetron 4 mg PO Q6H PRN #14 tab 03/18/20 Allergies Allergy/AdvReac Type Severity Reaction Status Date / Time Penicillins Allergy Verified 02/09/20 00:36 Review of Systems <LAURE Riggs - Last Filed: 03/18/20 20:13> Review of Systems Narrative: REVIEW OF SYSTEMS: GENERAL: Denies fever, chills, malaise, or wt. loss. HENT: No head trauma. CARDIOVASCULAR: No chest pain. RESPIRATORY: No shortness of breath or cough. GASTROINTESTINAL: Complains intermittent abdominal pain and vomiting, see HPI GENITOURINARY: Reports left-sided flank pain, see HPI MUSCULOSKELETAL: No pain, weakness, or trauma. INTEGUMENTARY: No rash, lesions, or pruritus. NEURO: No numbness or tingling. PSYCH: No behavior or mood changes. Patient History <LAURE Riggs - Last Filed: 03/18/20 20:13> Medical History Pancreatitis (Acute) Surgical History History of cholecystectomy (Acute) Social History household members: none Smoking Status: Never smoker alcohol intake: current Smoking Status: Never smoker alcohol intake frequency: 0-2 drinks per day Substance Use Type: marijuana Exam <LAURE Riggs - Last Filed: 03/18/20 20:13> Initial Vital Signs Initial Vital Signs: Vital Signs Pulse Rate 91 H 03/18/20 16:00 Respiratory Rate 18 03/18/20 16:00 Blood Pressure 178/90 H 03/18/20 16:00 Pulse Oximetry 100 03/18/20 16:00 PHYSICAL EXAMINATION: GENERAL: Well groomed, alert, and cooperative. No distress. Answers questions appropriately and probably. HENT: Normocephalic, atraumatic. Hearing intact. Oral mucosa is pink and moist. EYES: Conjunctiva pink, sclera white, no periorbital swelling. CARDIOVASCULAR: S1 and S2 sounds normal. Regular rate and rhythm, no murmurs, clicks, or bruits. No pedal edema. RESPIRATORY: Normal respiratory rate, trachea midline, airway patent. No stridor, nasal flaring or accessory muscle use. Lungs are clear in all blevins without wheeze, rhonchi, or crackles. GASTROINTESTINAL: Bowel sounds normoactive. Abdomen is soft and non-tender. No organomegaly, no palpable masses. GENITALURINARY: No CVA tenderness. MUSCULOSKELETAL: Normal gait and coordination. Equal tone and mass bilaterally. EXTREMITIES: CMS intact, no pedal edema. SKIN: Warm, dry, soft, appropriate color for ethnicity. No lesions, rashes, or wounds to visualized areas. NEURO: Alert and Oriented X 3. Good coordination. No ataxia, or sensory deficits, or cognitive issues. PSYCH: Appropriate affect and mood. <Carly Fishman DO - Last Filed: 03/19/20 08:42> Initial Vital Signs Initial Vital Signs: Vital Signs Pulse Rate 91 H 03/18/20 16:00 Respiratory Rate 18 03/18/20 16:00 Blood Pressure 178/90 H 03/18/20 16:00 Pulse Oximetry 100 03/18/20 16:00 Course <LAURE Riggs - Last Filed: 03/18/20 20:13> Course Course Narrative: Patient reports complete resolution of pain in the ED post Toradol administration. Orders Ordered: Discontinued Medications Sodium Chloride (Normal Saline 0.9%) 1,000 mls @ 1,000 mls/hr IV BOLUS ONE Stop: 03/18/20 17:10 Last Infusion: 03/18/20 17:59 Dose: 0 mls/hr Documented by: Admin: 03/18/20 16:23 Dose: 1,000 mls/hr Documented by: LAURO Ketorolac Tromethamine (Toradol) 30 mg IV NOW ONE Stop: 03/18/20 16:14 Last Admin: 03/18/20 16:24 Dose: 30 mg Documented by: LAURO Ondansetron HCl (Zofran) 4 mg IV NOW ONE Stop: 03/18/20 16:14 Last Admin: 03/18/20 16:23 Dose: 4 mg Documented by: LAURO Consultations Consultation #1: Discussed test, test results, plan of care with Dr. Fishman. Vital Signs Vital signs: Vital Signs - 8 hr 03/18/20 16:00 03/18/20 17:03 03/18/20 17:17 Pulse Rate 91 H 74 79 Respiratory Rate 18 Blood Pressure 178/90 H 142/85 H Pulse Oximetry 100 98 99 03/18/20 17:30 Pulse Rate 73 Respiratory Rate 16 Blood Pressure 150/85 H Pulse Oximetry 99 <Carly Fishman DO - Last Filed: 03/19/20 08:42> Orders Ordered: Discontinued Medications Sodium Chloride (Normal Saline 0.9%) 1,000 mls @ 1,000 mls/hr IV BOLUS ONE Stop: 03/18/20 17:10 Last Infusion: 03/18/20 17:59 Dose: 0 mls/hr Documented by: Admin: 03/18/20 16:23 Dose: 1,000 mls/hr Documented by: LAURO Ketorolac Tromethamine (Toradol) 30 mg IV NOW ONE Stop: 03/18/20 16:14 Last Admin: 03/18/20 16:24 Dose: 30 mg Documented by: LAURO Ondansetron HCl (Zofran) 4 mg IV NOW ONE Stop: 03/18/20 16:14 Last Admin: 03/18/20 16:23 Dose: 4 mg Documented by: LAURO Vital Signs Vital signs: Vital Signs - 8 hr 03/18/20 16:00 03/18/20 17:03 03/18/20 17:17 Pulse Rate 91 H 74 79 Respiratory Rate 18 Blood Pressure 178/90 H 142/85 H Pulse Oximetry 100 98 99 03/18/20 17:30 Pulse Rate 73 Respiratory Rate 16 Blood Pressure 150/85 H Pulse Oximetry 99 MDM - Abdominal Pain <LAURE Riggs - Last Filed: 03/18/20 20:13> Medical Records Attestation: I reviewed the patient's medical records. Lab Data Attestation: I reviewed the patient's lab results. Result diagrams: 03/18/20 16:16 03/18/20 16:16 Labs: Lab Results 03/18/20 03/18/20 Range/Units 16:16 16:16 WBC 14.8 H (4.5-11.0) X10^3/uL RBC 5.01 (4.5-5.9) X10^6/uL Hgb 15.5 (13.5-17.5) g/dL Hct 44.6 (41-53) % MCV 88.9 (80-100) fL MCH 31.0 (26-34) PG MCHC 34.8 (30-36) % RDW 13.8 (11.6-14.8) % Plt Count 216 (150-400) X10^3/uL Neut % (Auto) 92.9 H (50-75) % Lymph % (Auto) 3.6 L (25-40) % [place] % (Auto) 3.2 (3-14) % Eos % (Auto) 0.1 L (2-4) % Baso % (Auto) 0.2 (0-2) % Neut # (Auto) 00661 H (8479-4275) /uL Lymph # (Auto) 500 L (0608-8847) /uL [place] # (Auto) 500 (0-900) /uL Eos # (Auto) 0 (0-450) /uL Baso # (Auto) 0 (0-100) /uL Sodium 137 (137-145) mmol/L Potassium 4.1 (3.4-5.1) mmol/L Chloride 103 (98-107) mmol/L Carbon Dioxide 24 (22-32) mmol/L BUN 22 H (9-20) mg/dL Creatinine 1.15 (0.66-1.25) mg/dL Estimated GFR > 60.0 (>60) mL/min BUN/Creatinine Ratio 19.1 (6-22) Glucose 150 H (80-110) mg/dL Calcium 9.9 (8.4-10.2) mg/dL Total Bilirubin 1.2 (0.2-1.3) mg/dL AST 29 (17-59) IU/L ALT 30 (<50) IU/L Alkaline Phosphatase 89 (38-126) U/L Total Protein 8.1 (6.3-8.2) g/dL Albumin 4.7 (3.5-5.0) g/dL Globulin 3.4 (1.7-4.1) g/dL Albumin/Globulin Ratio 1.4 (1.0-2.8) Lipase 631 H (23-300) U/L Point of care testing: Urine Dip Bedside Urine Glucose Negative Bedside Urine Bilirubin - Negative Bedside Urine Ketone +/- 5 Urine Specific [place] 1.025 Bedside Urine Occult Blood +++ Bedside Urine pH 6.0 Bedside Urine Protein - Negative Bedside Urine Urobilinogen - Negative Bedside Urine Nitrite - Negative Bedside Urine Leukocytes - Negative Esterase MDM Narrative Medical decision making narrative: 69-year-old male presenting to the emergency department for left-sided flank pain that radiates to his left groin. I suspect patient's symptoms are most likely due to renal calculi, past CT on 02/09/2020, shows multiple stones in the left renal pelvis, patient reports this pain feels similar to his past kidney stones, pain resolved after administration of Toradol, renal function and other laboratories at are non-remarkable. I do not feel a CT is indicated at this time as patient's abdominal examination is benign, no tenderness to palpation. Lipase 646 which is significantly lower than past measurements earlier last month, patient's pain resolved. He was encouraged to continue low-fat diet that he has been on. We discussed treating renal calculi with pain medication and nausea medication. He was en couraged to continue taking tamsulosin, patient states he has an appointment scheduled with a urologist, encouraged him to call and discussed renal calculi on CT, discussed that once stone measured 6 mm which may or may not be difficult to pass. Return precautions given for new or worsening symptoms. Patient agreed to plan of care and verbalized understanding. <Carly Fishman, DO - Last Filed: 03/19/20 08:42> Lab Data Labs: Lab Results 03/18/20 03/18/20 Range/Units 16:16 16:16 WBC 14.8 H (4.5-11.0) X10^3/uL RBC 5.01 (4.5-5.9) X10^6/uL Hgb 15.5 (13.5-17.5) g/dL Hct 44.6 (41-53) % MCV 88.9 (80-100) fL MCH 31.0 (26-34) PG MCHC 34.8 (30-36) % RDW 13.8 (11.6-14.8) % Plt Count 216 (150-400) X10^3/uL Neut % (Auto) 92.9 H (50-75) % Lymph % (Auto) 3.6 L (25-40) % [place] % (Auto) 3.2 (3-14) % Eos % (Auto) 0.1 L (2-4) % Baso % (Auto) 0.2 (0-2) % Neut # (Auto) 74222 H (6836-0290) /uL Lymph # (Auto) 500 L (6020-3510) /uL [place] # (Auto) 500 (0-900) /uL Eos # (Auto) 0 (0-450) /uL Baso # (Auto) 0 (0-100) /uL Sodium 137 (137-145) mmol/L Potassium 4.1 (3.4-5.1) mmol/L Chloride 103 (98-107) mmol/L Carbon Dioxide 24 (22-32) mmol/L BUN 22 H (9-20) mg/dL Creatinine 1.15 (0.66-1.25) mg/dL Estimated GFR > 60.0 (>60) mL/min BUN/Creatinine Ratio 19.1 (6-22) Glucose 150 H (80-110) mg/dL Calcium 9.9 (8.4-10.2) mg/dL Total Bilirubin 1.2 (0.2-1.3) mg/dL AST 29 (17-59) IU/L ALT 30 (<50) IU/L Alkaline Phosphatase 89 (38-126) U/L Total Protein 8.1 (6.3-8.2) g/dL Albumin 4.7 (3.5-5.0) g/dL Globulin 3.4 (1.7-4.1) g/dL Albumin/Globulin Ratio 1.4 (1.0-2.8) Lipase 631 H (23-300) U/L Point of care testing: Urine Dip Bedside Urine Glucose Negative Bedside Urine Bilirubin - Negative Bedside Urine Ketone +/- 5 Urine Specific [place] 1.025 Bedside Urine Occult Blood +++ Bedside Urine pH 6.0 Bedside Urine Protein - Negative Bedside Urine Urobilinogen - Negative Bedside Urine Nitrite - Negative Bedside Urine Leukocytes - Negative Esterase Discharge Plan Departure Patient Disposition: Home Clinical Impression: Renal calculi Discharge Date/Time: 03/18/20 18:00 Instructions: DI for Kidney Stones Activity Restrictions/Additional Instructions: Thank you for entrusting me with your care today. As discussed, your laboratory work shows a slightly elevated lipase (631) and a slightly elevated white blood cell count. This may be due to your resolving pancreatitis and a passing kidney stone. Continue to take your tamsulosin, I have given you a pain medication and nausea medication to help with the kidney stone. Please call your urologist tomorrow to schedule a sooner appointment if possible. Return to the emergency department immediately for any new or worsening symptoms especially pain, continued vomiting, fevers, or any other concerns. Prescriptions: New hydrocodone-acetaminophen [Novice] 5-325 mg tablet 1 tab PO Q4-6H PRN (Reason: pain) Qty: 14 RF: 0 ondansetron 4 mg tablet,disintegrating 4 mg PO Q6H PRN (Reason: nausea and vomiting) Qty: 14 RF: 0 No Action metformin [Glucophage] 500 mg tablet 500 mg PO BID RF: 0 tamsulosin [Flomax] 0.4 mg capsule 0.8 mg PO BEDTIME RF: 0 <Carly Fishman, DO - Last Filed: 03/19/20 08:42> Cosign ED Attending Cosignature Attestation: I was immediately available in the department for consultation. Documentation has been reviewed. I agree with assessment and plan.
[2020-03-18 16:23] LABS: Add Manual Diff / Slide Review NO; Basophils Absolute Auto 0 /uL (0-100); Basophils Percent Auto 0.2 % (0-2); Eosinophils Absolute Auto 0 /uL (0-450); Eosinophils Percent Auto 0.1 % (2-4); Hematocrit 44.6 % (41-53); Hemoglobin 15.5 g/dL (13.5-17.5); Lymphocytes Absolute Auto 500 /uL (1100-4500); Lymphocytes Percent Auto 3.6 % (25-40); Mean Corpuscular HGB Conc 34.8 % (30-36); Mean Corpuscular Volume 88.9 fL (80-100); Monocytes Absolute Auto 500 /uL (0-900); Monocytes Percent Auto 3.2 % (3-14); Neutrophils Absolute Auto 13700 /uL (1500-7000); Neutrophils Percent Auto 92.9 % (50-75); Platelet Count 216 X10^3/uL (150-400); Red Blood Cell Count 5.01 X10^6/uL (4.5-5.9); Red Cell Distribution Width 13.8 % (11.6-14.8); White Blood Cell Count 14.8 X10^3/uL (4.5-11.0)
[2020-03-18] MEDS: ONDANSETRON 4 MG/2 ML INJ IV (16:23)
[2020-03-18] MEDS: SODIUM CHLORIDE 0.9% 1,000 ML 1000 ML IV (16:23)
[2020-03-18] MEDS: KETOROLAC 60 MG/2 ML VIAL 30 MG IV (16:24)
[2020-03-18 16:58] LABS: Alanine Aminotransferase 30 IU/L (<50); Albumin 4.7 g/dL (3.5-5.0); Albumin Globulin Ratio 1.4 (1.0-2.8); Alkaline Phosphatase 89 U/L (38-126); Aspartate Aminotransferase 29 IU/L (17-59); BUN Creatinine Ratio 19.1 (6-22); Bilirubin Total 1.2 mg/dL (0.2-1.3); Blood Urea Nitrogen 22 mg/dL (9-20); Calcium 9.9 mg/dL (8.4-10.2); Carbon Dioxide 24 mmol/L (22-32); Chloride 103 mmol/L (98-107); Estimated Glomerular Filt Rate > 60.0 mL/min (>60); Globulin 3.4 g/dL (1.7-4.1); Glucose 150 mg/dL (80-110); HEMOLYSIS < 15 (0-50); Lipase 631 U/L (23-300); Potassium 4.1 mmol/L (3.4-5.1); Sodium 137 mmol/L (137-145); Total Protein 8.1 g/dL (6.3-8.2)
[2020-03-18 17:03] VITALS: PULSE 74; O2SAT 98
[2020-03-18 17:17] VITALS: BP 142/85; PULSE 79; O2SAT 99
[2020-03-18 17:30] VITALS: BP 150/85; PULSE 73; RESP 16; O2SAT 99
== END 2020-03-18 18:00 | disposition home or self-care (01) ==
PROVIDERS: Emergency Provider Nurse Practitioner
DX: N20.0 Calculus of kidney (principal); R11.10 Vomiting, unspecified; E11.9 Type 2 diabetes mellitus without complications
CPT/HCPCS: 36415; 80053; 81003; 83690; 85025; 96361; 96374; 96375; 99284; J1885; J2405